=== PATIENT | female | born 1980 | race African-American/Black ===

== ENCOUNTER 2017-02-03 10:05 | Emergency (ER) | payer SELFPAY ==
[~2017-02-03] VITALS: Ht 165.1 cm; Wt 91.0 kg
[2017-02-03 11:28] VITALS: BP 132/81
[2017-02-03] MEDS ORDERED: TETANUS, DIPHTHERIA, PERTUSSIS VAC/PF 0.5ML (>7YR OLD) IM ONE (11:30)
[2017-02-03] MEDS ORDERED: BACITRACIN ZINC OINT UDPKT TOP ONE (11:30)
[2017-02-03] MEDS ORDERED: IBUPROFEN 600MG TABLET PO ONE (11:30)
== END 2017-02-03 11:41 | disposition home or self-care (01) ==
LOC: ER 10:54
DX: S91.104A Unspecified open wound of right lesser toe(s) without damage to nail, initial encounter (principal); J45.909 Unspecified asthma, uncomplicated; F12.10 Cannabis abuse, uncomplicated; X58.XXXA Exposure to other specified factors, initial encounter; Y93.89 Activity, other specified; Y92.89 Other specified places as the place of occurrence of the external cause; Y99.8 Other external cause status
CPT/HCPCS: 90471; 90715; 99283; X7700; Z7610

== ENCOUNTER 2018-06-12 01:34 | Emergency (ER) | payer SELFPAY ==
[~2018-06-12] VITALS: Ht 154.9 cm; Wt 94.0 kg
== END 2018-06-12 04:21 | disposition left against medical advice (07) ==
LOC: ER 01:34
DX: Z53.21 Procedure and treatment not carried out due to patient leaving prior to being seen by health care provider (principal)